=== PATIENT | male | born 1950 | race Caucasian/White ===

== ENCOUNTER 2019-09-30 08:17 | Observation (INO) ==
[2019-09-30] MEDS ORDERED: Diazepam 5 mg TAB (*) ONE (09:11)
[2019-09-30] MEDS ORDERED: Heparin 1,000 UNIT/ML CATH LAB 1,000 10 ml (10,000 UNITS) IV ONE (09:13)
[2019-09-30] MEDS ORDERED: Heparin 2 UNITS/ML 1000 mls 2,000 ML IV ONE (09:13)
[2019-09-30] MEDS ORDERED: VERAPAMIL 2.5 MG/ML 2 ML VIAL ** 5 mg/2 ml ONE (09:13)
[2019-09-30] MEDS ORDERED: fentaNYL 100 mcg/2 ml 50 MCG/ML VIAL ONE (09:14)
[2019-09-30] MEDS ORDERED: nitroGLYCERIN DRIP 25,000 MCG/250 ML BTL ONE (09:14)
[2019-09-30] MEDS ORDERED: Lidocaine 1% VIAL 10 MG/ML VIAL ONE (09:14)
[2019-09-30] MEDS ORDERED: Iohexol 350 (CONTRAST) 200 ML MDV IV ONE (09:15)
[2019-09-30] MEDS ORDERED: Midazolam 5 mg/5 ml VIAL 1 mg/ml 5 ml VIAL (5 mg) ONE (09:15)
[2019-09-30] MEDS ORDERED: NS 0.9% 1000 ml BAG 1,000 ML IV SCH (10:45)
[2019-09-30] MEDS ORDERED: CMCS: Rosuvastatin 20 mg TAB (NF) PO SCH (21:00)
[2019-10-01 06:09] LABS: ABS Basophils 0.1 10^3/ul (0-0.2); ABS Eosinophils 0.3 10^3/ul (0-0.6); ABS Lymphocytes 2.8 10^3/ul (1.0-4.8); ABS Monocytes 0.6 10^3/ul (0-0.8); Hematocrit 40 % (42-52); Hemoglobin 13.9 g/dL (14.0-18.0); Lymphocyte % 32.8 %; Mean Corpuscular HGB Conc 35 g/dL (31-36); Mean Corpuscular Hemoglobin 30 pg (27-31); Mean Corpuscular Volume 86 fL (80-94); Mean Platelet Volume 8.5 fL (7.4-10.4); Nucleated Red Blood Cells % 0.1; Platelet Count 192 10^3/uL (150-450); Red Blood Count 4.59 10^6 /uL (4.18-5.48); Red Cell Distribution Width 14 % (10-15); White Blood Count 8.6 10^3/uL (3.5-10.8)
[2019-10-01 06:25] LABS: BUN/Creatinine Ratio 14.3 (8-20); EGFR African American 110.3 (>60); EGFR Non-African American 91.1 (>60); Potassium 4.1 mmol/L (3.5-5.0)
[2019-10-01] MEDS ORDERED: Aspirin EC 81 mg TAB.EC (enteric coated) PO SCH (09:00)
[2019-10-01 10:50] VITALS: BP 149/82
== END 2019-10-01 10:30 | disposition home or self-care (01) ==
LOC: CHICATH 08:17 → ICU 08:17
PROVIDERS: ADMIT Specialist; ATTEND Specialist